=== PATIENT | male | born 1940 | race Caucasian/White ===

== ENCOUNTER 2019-01-01 12:46 | Emergency (ER) | payer MEDICARE, OTHER, SELFPAY ==
[2019-01-01 12:47] VITALS: BP 119/80; PULSE 89; RESP 18; TEMP 36.5; O2SAT 94; BMI 17.0
--- NOTE | 2019-01-01 13:13 | ED.DCSUM_ITS ---
History of Present Illness Chief Complaint: Back Informant: Patient Onset: Weeks Current Severity: Mild Narrative: The patient reports no past history indicates he had right para sacral back pain for some time days to weeks it has persisted nothing makes it better or worse except if he stands straight up and does not move if he lays down on that side it bothers him more, he is able to walk he has had no trauma no fever no cough normal bowel bladder habits no numbness weeks paresthesias he indicates he may have some degree of arthritis but nothing that he takes medication for, he is followed by the [facility] in [place] he has no other complaints he points directly to the right parasacral area Past Medical History - Allergies and Home Meds Allergies/Adverse Reactions: Allergies No Known Allergies Allergy (Verified 01/01/19 12:50) Primary Care Physician: [facility],[place] [Primary Care Provider] - Past Medical History: - - He declines a significant past medical history Smoking Status: Current every day smoker Review of Systems General: Denies: Chills, Fever, Sweats Eyes: Denies: Visual changes - bilaterally, Diplopia ENT: Denies: Rhinorrhea, Sore throat Cardiovascular: Denies: Chest pain, Palpitations Respiratory: Denies: Dyspnea, Cough, Dyspnea on exertion Gastrointestinal: Denies: Abdominal pain, Nausea, Vomiting, Diarrhea, Melena, Hematochezia Genitourinary: Denies: Dysuria, Hematuria, Frequency Musculoskeletal: Denies: Back pain, Extremity Pain Skin: Denies: Rash, Wounds Neurological: Denies: Headache, Weakness, Numbness Physical Exam Vital Signs/Narrative: Vital Signs Temp Pulse Resp BP Pulse Ox 01/01/19 12:47 97.7 F L 89 18 119/80 94 General: Well nourished, Well developed, No Acute Distress Head: Normocephalic, Atraumatic Eyes: Perrl, EOMI ENT: Moist mucous membranes, No rhinorrhea Neck: Supple, Nontender Cardiovascular: Regular rate, Regular rhythm, No murmurs Respiratory: No distress, CTA bilaterally, Chest nontender Abdomen: Soft, Nontender, Nondistended, Normal bowel sounds Back: Nontender, Normal Inspection, - - Very mild pain to the left of the midline sacrum, this is a very bony area palpable there is no trauma no skin lesions, his pelvis is stable he is able to walk around without difficulty he has no significant pain with movement of the right leg or left leg is neurovascular function is normal his abdomen soft and nontender his symptoms are to the right para sacral area Extremities: Nontender, No edema Skin: Normal color, No rash Neurological: Alert, Oriented x3, Cranial nerves II-XII grossly intact, Normal Strength, Normal Sensation Psychological: Normal affect, Normal Mood Diagnostic/Tx/Re-eval - Medical Decision Making I had a long conversation with the patient we discussed obtaining x-rays etc. he declined that saying he simply want a cortisone injection to that spot, I explained this is not procedure generally done through the emergency department, he declined the x-rays, at this time start on Naprosyn and he is referred to orthopedics for the management Home stable Final impression Right parasacral back pain ED Disposition - Plan for ED Patient: Diagnosis: Sacral back pain Instructions: BACK SPASM, No Trauma Prescriptions: Naproxen [Naprosyn] 500 mg PO BID PRN #20 tab Prescription Printed Referrals: [facility] [Primary Care Provider] - Zay Urban MD [STAFF PHYSICIAN] -
[2019-01-01] MEDS: Naproxen 500 MG Tablet PO (13:25)
== END 2019-01-01 13:40 | disposition home or self-care (01) ==
LOC: ED 13:39
PROVIDERS: Emergency Provider Emergency Medicine
DX: M54.5 Low back pain (principal); F17.200 Nicotine dependence, unspecified, uncomplicated
CPT/HCPCS: 99283

== ENCOUNTER 2019-01-12 13:45 | Emergency (ER) | payer MEDICARE, OTHER, SELFPAY ==
[2019-01-12 13:46] VITALS: BP 139/89; PULSE 86; RESP 19; TEMP 36.3; O2SAT 92; BMI 30.8
--- NOTE | 2019-01-12 13:57 | RAD_ITS ---
STUDY: X-RAY - PELVIS REASON FOR EXAM: Male, 78 years old. Right side pain for 2 weeks TECHNIQUE: One view of the pelvis was obtained. COMPARISON: None. FINDINGS: There is a non-specific bowel gas pattern. Normal visualized soft tissue structures. Intact bilateral iliac wings, sacroiliac joints and visualized sacrum. Normal visualized bilateral superior and inferior pubic rami. Normal pubic symphysis. Normal ischial tuberosities. Moderate right osteoarthritis. Mild left osteoarthritis. RAD/Pelvis 1 or 2 Views IMPRESSION: Moderate right osteoarthritis. Mild left osteoarthritis. No acute displaced fracture, or traumatic subluxation based on current assessment. Electronically Signed: Andrea Cordero MD at 14:34 EDT Tel [phone], Service support ,
--- NOTE | 2019-01-12 14:01 | ED.DCSUM_ITS ---
- ER Visit Summary Date of Service: 01/12/19 Chief Complaint: [Pain to right buttock] History of Present Illness: The patient is a 78 M [presents to the emergency department with 11-day history of pain in his right parasacral area. Patient states that he had just finished mowing the lawn outside and taking care of his dogs when he came inside to sit down. Once he stood back up he had sudden onset of severe pain. Patient was seen in the emergency department and was prescribed Naprosyn which immediately helped resolve his pain. Patient denies any pain rating down his leg. Patient has a call out to orthopedics for follow- up but does not know when he will be able to follow-up. Patient is requesting another prescription for naproxen. Patient denies loss of bowel or bladder function. He denies weakness in extremities.] Physical Examination: [HEENT-PERRLA, EOMI. Cranial nerves II through XII grossly intact. TMs clear. Mucous membranes moist. No adenopathy. Cardiovascular-regular rate and rhythm without murmur or ectopy Lungs-clear to auscultation, chest wall stable without crepitus or subcu emphysema Abdomen-normoactive bowel sounds, soft, nontender, no rebound or rigidity, no peritoneal signs. Back exam-no tenderness over the lumbar spine. Patient does have tenderness over the right SI joint that seems to reproduce his pain. There is no erythema or warmth noted. No masses palpated. Patient has negative straight leg raises. Deep tendon reflexes are plus 2 out of 4 bilaterally at the patella and Achilles. Patient has normal 5 extension. Extremities-intact ?4, normal range of motion, normal pulses, atraumatic] Test Results: [X-rays of the pelvis obtained showed nothing acute. Patient was noted to have age-related degenerative changes of the lumbar spine.] Emergency Department Course and Treatment: [] Treatment Plan: [Patient will be given a prescription for naproxen and advised to follow-up with orthopedics as planned.] Disposition: [Discharged home stable condition] Impression: [Sacroiliitis] This note was generated with [employer] software. It may contain incorrect words, spelling, and punctuation that were not noted in review of the chart prior to signing ED Disposition - Plan for ED Patient: Referrals: [facility] [Primary Care Provider] -
--- NOTE | 2019-01-12 14:29 | ED.DEP ---
ED Disposition - Plan for ED Patient: Instructions: Med Refill, BACK PAIN (Acute or Chronic) Prescriptions: Naproxen [Naprosyn] 500 mg PO BID PRN #20 tab Prescription Printed Referrals: Zay Urban MD [STAFF PHYSICIAN] - 3-5 Days
[2019-01-12 14:40] VITALS: RESP 17; RESP 19
== END 2019-01-12 14:41 | disposition home or self-care (01) ==
PROVIDERS: Emergency Provider Emergency Medicine
DX: S76.011A Strain of muscle, fascia and tendon of right hip, initial encounter (principal); M46.1 Sacroiliitis, not elsewhere classified; X58.XXXA Exposure to other specified factors, initial encounter; Y93.9 Activity, unspecified; Y92.9 Unspecified place or not applicable; Y99.9 Unspecified external cause status; Z72.0 Tobacco use
CPT/HCPCS: 72170; 99282